=== PATIENT | female | born 1950 | race Caucasian/White ===

== ENCOUNTER 2016-09-06 02:50 | Emergency (ER) | payer BC, OTHER ==
[~2016-09-06] VITALS: Ht 157.5 cm; Wt 76.0 kg
[~2016-09-06 02:50] MED LIST: ALLERGY MED OTC PO; BLACK COHOSH PO; LISI40TA PO; VITA400C28 PO
[2016-09-06 02:53] VITALS: BP 179/101; PULSE 101; RESP 28; TEMP 97.9; O2SAT 95
[2016-09-06] MEDS ORDERED: methylPREDNISolone SOD SUCC 125 MG/2 ML VIAL IVP ONE (03:45)
[2016-09-06] MEDS ORDERED: SODIUM CHLORIDE 0.9% FLUSH 5 ML FLUSH IVF PRN (03:45)
--- NOTE | 2016-09-06 03:48 | PD ---
HPI Chief Complaint: Respiratory Symptoms Time Seen by Provider: 03:15 Travel History International Travel<30 days: No Contact w/Intl Traveler<30days: No Traveled to known affect area: No History of Present Illness HPI 65-year-old female with history of COPD, hypertension, A. fib, here for evaluation of shortness of breath. Last week the patient has had a cough productive of yellowish sputum. For the last day the patient has had worsening shortness of breath. Shortness breath is at rest, worse with exertion. No chest pain. No hemoptysis. No history of DVT or PE. No fevers or chills. PFSH Past Medical History Cancer: No COPD: Yes Diabetes: No Diminished Hearing: No Hepatitis: No Hiatal Hernia: No Hypertension: Yes Medical other: Yes (PNEUMONIA 12 YEARS AGO, BRONCHITIS) Thyroid Disease: No Tetanus Vaccination: Never Vaccinated Influenza Vaccination: No Past Surgical History Abdominal Surgery: Yes (CHOLECYSTECTOMY, BRISEIDA) Cardiac Surgery: No Ear Surgery: No Endocrine Surgery: No Eye Surgery: No Gynecologic Surgery: Yes (BRISEIDA) Oral Surgery: No Pacemaker: No Thoracic Surgery: No Social History Alcohol Use: Yes (WINE OCCAS) Tobacco Use: No (QUIT 5 YEARS AGO) Substance Use: No Allergies-Medications (Allergen,Severity, Reaction): Coded Allergies: No Known Allergies (Verified , 09/06/16) Reported Meds & Prescriptions Reported Meds & Active Scripts Active Prednisone 50 Mg Tab 50 Mg PO DAILY 5 Days Levaquin (Levofloxacin) 500 Mg Tab 500 Mg PO DAILY 5 Days Reported Vitamin D (Cholecalciferol) 400 Unit Tab 100 Unit PO DAILY Prinivil 40 mg (Lisinopril) 40 Mg Tab 40 Mg PO DAILY [Allergy Med Otc] 1 Tab PO DAILY [Black [place]] 2 Tab PO DAILY Review of Systems Except as stated in HPI: all other systems reviewed are Neg Physical Exam Narrative GENERAL: Well-developed and well-nourished, comfortable, no acute distress. SKIN: Warm and dry. HEAD: Atraumatic. Normocephalic. EYES: Pupils equal and round. No scleral icterus. No injection or drainage. ENT: Mucous membranes pink and moist. NECK: Trachea midline. No JVD. CARDIOVASCULAR: Regular rate and rhythm. No murmur appreciated. RESPIRATORY: No accessory muscle use. Inspiratory and expiratory wheezes bilaterally with coarse breath sounds bilaterally. No rales or rhonchi. GASTROINTESTINAL: Abdomen soft, non-tender, nondistended. Hepatic and splenic margins not palpable. MUSCULOSKELETAL: No obvious deformities. No clubbing. No cyanosis. No edema. NEUROLOGICAL: Awake and alert. No obvious cranial nerve deficits. Motor grossly within normal limits. Normal speech. PSYCHIATRIC: Appropriate mood and affect; insight and judgment normal. Data Data Last Documented VS Vital Signs Date Time Temp Pulse Resp B/P Pulse Ox O2 Delivery O2 Flow Rate FiO2 09/06/16 04:53 97 Nasal Cannula 2 09/06/16 04:53 18 09/06/16 02:53 97.9 101 179/101 Orders Complete Blood Count With Diff (09/06/16 03:44) Basic Metabolic Panel (Bmp) (09/06/16 03:44) B-Type Natriuretic Peptide (09/06/16 03:44) Act Partial Throm Time (Ptt) (09/06/16 03:44) Prothrombin Time / Inr (Pt) (09/06/16 03:44) Ckmb (Isoenzyme) Profile (09/06/16 03:44) Troponin I (09/06/16 03:44) Influenzae A/B Antigen (09/06/16 03:44) Iv Access Insert/Monitor (09/06/16 03:44) Electrocardiogram (09/06/16 03:44) Ecg Monitoring (09/06/16 03:44) Oximetry (09/06/16 03:44) Oxygen Administration (09/06/16 03:44) Chest, Single Ap (09/06/16 03:44) Sodium Chloride 0.9% Flush (Ns Flush) (09/06/16 03:45) Methylprednisolone So Succ Inj (Solumedr (09/06/16 03:45) Albuterol-Ipratropium Neb (Duoneb Neb) (09/06/16 03:45) CKMB (09/06/16 03:50) CKMB% (09/06/16 03:50) Levofloxacin 500 Mg Premix Inj (Levaquin (09/06/16 05:15) Labs Laboratory Tests Test 09/06/16 03:50 White Blood Count 9.2 TH/MM3 Red Blood Count 5.36 MIL/MM3 Hemoglobin 14.9 GM/DL Hematocrit 45.0 % Mean Corpuscular Volume 84.0 FL Mean Corpuscular Hemoglobin 27.8 PG Mean Corpuscular Hemoglobin 33.1 % Concent Red Cell Distribution Width 14.4 % Platelet Count 255 TH/MM3 Mean Platelet Volume 8.9 FL Neutrophils (%) (Auto) 46.5 % Lymphocytes (%) (Auto) 38.5 % Monocytes (%) (Auto) 8.4 % Eosinophils (%) (Auto) 5.6 % Basophils (%) (Auto) 1.0 % Neutrophils # (Auto) 4.3 TH/MM3 Lymphocytes # (Auto) 3.5 TH/MM3 Monocytes # (Auto) 0.8 TH/MM3 Eosinophils # (Auto) 0.5 TH/MM3 Basophils # (Auto) 0.1 TH/MM3 CBC Comment DIFF FINAL Differential Comment Prothrombin Time 10.3 SEC Prothromb Time International 0.9 RATIO Ratio Activated Partial 26.6 SEC Thromboplast Time Sodium Level 143 MEQ/L Potassium Level 3.7 MEQ/L Chloride Level 106 MEQ/L Carbon Dioxide Level 27.7 MEQ/L Anion Gap 9 MEQ/L Blood Urea Nitrogen 16 MG/DL Creatinine 0.66 MG/DL Estimat Glomerular Filtration 89 ML/MIN Rate Random Glucose 87 MG/DL Calcium Level 8.8 MG/DL Total Creatine Kinase 116 U/L Creatine Kinase MB 1.8 NG/ML Troponin I LESS THAN 0.02 NG/ML B-Type Natriuretic Peptide 7 PG/ML [facility] Medical Decision Making Medical Screen Exam Complete: Yes Emergency Medical Condition: Yes Interpretation(s) EKG: Sinus, rate 90, normal axis, normal intervals, no acute ischemic abnormality. Differential Diagnosis COPD exacerbation, pneumonia, influenza, pulmonary edema, ACS, PE Narrative Course Initial vital signs show heart rate 101, blood pressure 179/101, pulse ox 95% on room air, temp of 97.9F. CBC is unremarkable. BMP is unremarkable. Cardiac enzymes are negative. BNP is 7. Influenza is negative. Chest x-ray: The patient was given 3 DuoNeb treatments and IV Solu-Medrol with significant improvement in respiratory status. She states she is feeling a lot better. Patient is having COPD exacerbation. Given yellowish sputum, I will start her on Levaquin. She is stable for discharge home with outpatient follow-up with a primary care physician this week. She was informed on when to return to the emergency department pitcher verbalizes understanding and agreement with plan. Diagnosis Primary Impression: COPD exacerbation Referrals: Primary Care Physician 2 days Additional Instructions: Follow-up with a primary care physician this week. Take medications as prescribed. Return to the emergency department for worsening symptoms or any other concerns. Scripts Prednisone 50 Mg Tab50 Mg PO DAILY 5 Days Ref 0 Prov:Tiburcio Ruvalcaba MD 09/06/16 Levofloxacin (Levaquin)500 Mg [id number] Mg PO DAILY 5 Days Ref 0 Prov:Tiburcio Ruvalcaba MD 09/06/16 Disposition: 01 DISCHARGE HOME Condition: Stable Tiburcio Ruvalcaba MD Sep 06, 2016 03:48
[2016-09-06] MEDS: RESP: ALBUTEROL 2.5 MG/IPRATROPIUM 0.5 MG NEB (SCH) INH ×2 (04:06→04:08)
[2016-09-06 04:07] LABS: AUTOMATED NEUTROPHIL # 4.3 TH/MM3 (1.8-7.7); BASOPHIL # 0.1 TH/MM3 (0-0.2); EOSINOPHIL # 0.5 TH/MM3 (0-0.4); EOSINOPHIL % 5.6 % (0.0-4.0); HEMO FLAGS DIFF FINAL; LYMPH % 38.5 % (9.0-44.0); LYMPHOCYTE # 3.5 TH/MM3 (1.0-4.8); MEAN CORPUSCULAR HEMOGLOBIN 27.8 PG (27.0-34.0); MEAN CORPUSCULAR HGB CONC 33.1 % (32.0-36.0); MONO % 8.4 % (0.0-8.0); NEUT % 46.5 % (16.0-70.0); PLATELET COUNT 255 TH/MM3 (150-450); RED BLOOD COUNT 5.36 MIL/MM3 (4.00-5.30); RED CELL DISTRIBUTION WIDTH 14.4 % (11.6-17.2); WHITE BLOOD COUNT 9.2 TH/MM3 (4.0-11.0)
[2016-09-06 04:20] LABS: APTT (PATIENT) 26.6 SEC (24.3-30.1); INTERNATIONAL NORMALIZED RATIO 0.9 RATIO; PROTHROMBIN TIME - PATIENT 10.3 SEC (9.8-11.6)
[2016-09-06 04:21] LABS: ANION GAP 9 MEQ/L (5-15); BICARBONATE 27.7 MEQ/L (21.0-32.0); BLOOD UREA NITROGEN 16 MG/DL (7-18); CHLORIDE 106 MEQ/L (98-107); GLOMERULAR FILTRATION RATE 89 ML/MIN (>89); POTASSIUM 3.7 MEQ/L (3.5-5.1); SODIUM (NA) 143 MEQ/L (136-145)
[2016-09-06 04:24] LABS: CREATINE KINASE 116 U/L (26-192)
[2016-09-06 04:37] LABS: CKMB 1.8 NG/ML (0.5-3.6)
[2016-09-06 04:53] VITALS: RESP 18
--- NOTE | 2016-09-06 05:07 | RADRPT ---
EXAM DATE/TIME: 09/06/2016 04:23 [place] COMPARISON: No previous studies available for comparison. INDICATIONS : Short of breath. MEDICAL HISTORY : None. SURGICAL HISTORY : None. ENCOUNTER: Initial ACUITY: 1 day PAIN SCORE: 7/10 LOCATION: Bilateral chest FINDINGS: A single view of the chest demonstrates the lungs to be symmetrically aerated without evidence of mas s, infiltrate or effusion. The cardiomediastinal contours are unremarkable. Osseous structures are intact. CONCLUSION: 1. No acute findings. Multiple calcified granulomata in the left lung. Anthony Live MD on September 06, 2016 at 5:05 Board Certified Radiologist. This report was verified electronically.
[2016-09-06] MEDS ORDERED: LEVA500T PO (05:08)
[2016-09-06] MEDS ORDERED: PRED50 PO (05:08)
[2016-09-06] MEDS ORDERED: LEVOFLOXACIN 500 MG PREMIX INJ 100 ML IV ONE (05:15)
[2016-09-06] MEDS ORDERED: LEVOFLOXACIN 500 MG TAB PO ONE (05:15)
--- NOTE | 2016-09-06 09:59 | EKG ---
Date Performed: 09/06/2016 Time Performed: 03:25:02 PTAGE: 65 years EKG: Sinus rhythm POSSIBLE LEFT ATRIAL ENLARGEMENT BORDERLINE ECG PREVIOUS TRACING : 12/18/2007 15.51 DOCTOR: Walter Wiseman Interpretating Date/Time 09/06/2016 09:57:04
== END 2016-09-06 05:49 | disposition home or self-care (01) ==
LOC: NEPC 02:50
DX: J44.1 Chronic obstructive pulmonary disease with (acute) exacerbation (principal); I10 Essential (primary) hypertension; Z87.891 Personal history of nicotine dependence
CPT/HCPCS: 71010; 80048; 82550; 82552; 83880; 84484; 85025; 85610; 85730; 87804; 93005; 94640; 94664; 96374; 99285; J2930